=== PATIENT | female | born 1990 | race Caucasian/White ===

== ENCOUNTER → 2024-03-26 08:52 | Outpatient (REF) | payer OTHER, SELFPAY | LOC: RAD 08:52 | PROVIDERS: ATTENDING PHYSICIAN Chiropractor | DX: M99.01 Segmental and somatic dysfunction of cervical region (principal); M99.03 Segmental and somatic dysfunction of lumbar region | CPT/HCPCS: 72050; 72110 ==

== ENCOUNTER 2024-04-10 22:28 | Emergency (ER) | payer OTHER, SELFPAY ==
[2024-04-10 22:29] VITALS: BP 145/85
[2024-04-10 23:24] VITALS: BMI 27.8
--- NOTE | 2024-04-10 23:30 | ED.GENMED ---
History of Present Illness
<Gurmeet Casiano PA-C - Last Filed: 04/12/24 14:47>
General
Chief Complaint: Abdominal Pain
Source: patient
Time Seen by Provider: 04/10/24 23:09
History of Present Illness
History of Present Illness:
34-year-old otherwise healthy female presents with 3 to 4 days worth of initially intermittent right upper quadrant abdominal pain rating to the shoulder and back but now seems more constant. The pain is made worse with eating. Hurts to breathe at
times. No recent extended travel or surgery. No leg swelling or calf pain. There is no vomiting. She is moving her bowels. No urinary symptoms. No other complaints at this time. NO known injury
Phy Exam
<Gurmeet Casiano PA-C - Last Filed: 04/12/24 14:47>
Physical Exam
Physical Exam:
General: Uncomfortable appearing female no acute respiratory distress
HEENT: Normocephalic sclera anicteric
Heart: Regular rate and rhythm no murmurs
Lungs: Clear no wheeze
Abd: Soft, tender to RUQ, mildly positive otto's sign. NOrmal bowel sounds, no CVA tenderness
Ext: NO cyanosis
Course
<SHAYLEE Thomas Last Filed: 04/12/24 14:47>
Orders/Labs/Results
Orders:
Orders
04/10/24 22:32
Electrocardiogram (*1) Urgent
Reason for Study: Abdominal Pain
EKG- Treatment ONCE
04/10/24 23:25
0.9% Sodium Chloride 1000 ml [Nss] 1,000 ml IV BOLUS
Ketorolac [Toradol] 15 mg IV NOW STA
04/10/24 23:29
Test Result ONCE
04/10/24 23:30
Complete Blood Count/With Diff Urgent
Comprehensive Metabolic Panel Urgent
HCG, Serum Qualitative Screen Urgent
Lipase Urgent
04/10/24 23:37
Ondansetron Injectable [Zofran] 4 mg IV NOW STA
04/11/24 00:08
US Abdomen Complete/Upper Urgent
Comment:
Reason For Exam: ruq pain
04/11/24 01:44
HYDROmorphone [Dilaudid] 0.5 mg IV NOW STA
04/11/24 02:16
CT Abd/pelvis W Iv Cont Urgent
Comment:
Reason For Exam: right abdominal pain
Abnormal Lab Results
04/10/24
23:30
Hct 36.3 L %
(37.0-47.0)
Absolute Neuts (auto) 6.6 H 10^3/uL
(1.4-6.5)
Absolute Monos (auto) 0.8 H 10^3/uL
(0.1-0.6)
Glucose 102 H mg/dl
(70-99)
04/10/24 23:30
04/10/24 23:30
Vital Signs
Initial and Last Documented VS:
Initial Vital Signs
Temp Pulse Resp BP Pulse Ox
97.9 F 74 18 145/85 100
04/10/24 22:29 04/10/24 22:29 04/10/24 22:29 04/10/24 22:29 04/10/24 22:29
Last Documented Vital Signs
Temp Pulse Resp BP Pulse Ox
97.9 F 59 18 118/56 100
04/10/24 22:29 04/11/24 04:09 04/11/24 04:09 04/11/24 04:09 04/11/24 04:09
<Miranda Lema, DO - Last Filed: 04/11/24 03:54>
Orders/Labs/Results
Orders:
Orders
04/10/24 22:32
Electrocardiogram (*1) Urgent
Reason for Study: Abdominal Pain
EKG- Treatment ONCE
04/10/24 23:25
0.9% Sodium Chloride 1000 ml [Nss] 1,000 ml IV BOLUS
Ketorolac [Toradol] 15 mg IV NOW STA
04/10/24 23:29
Test Result ONCE
04/10/24 23:30
Complete Blood Count/With Diff Urgent
Comprehensive Metabolic Panel Urgent
HCG, Serum Qualitative Screen Urgent
Lipase Urgent
04/10/24 23:37
Ondansetron Injectable [Zofran] 4 mg IV NOW STA
04/11/24 00:08
US Abdomen Complete/Upper Urgent
Comment:
Reason For Exam: ruq pain
04/11/24 01:44
HYDROmorphone [Dilaudid] 0.5 mg IV NOW STA
04/11/24 02:16
CT Abd/pelvis W Iv Cont Urgent
Comment:
Reason For Exam: right abdominal pain
Abnormal Lab Results
04/10/24
23:30
Hct 36.3 L %
(37.0-47.0)
Absolute Neuts (auto) 6.6 H 10^3/uL
(1.4-6.5)
Absolute Monos (auto) 0.8 H 10^3/uL
(0.1-0.6)
Glucose 102 H mg/dl
(70-99)
04/10/24 23:30
04/10/24 23:30
Vital Signs
Initial and Last Documented VS:
Initial Vital Signs
Temp Pulse Resp BP Pulse Ox
97.9 F 74 18 145/85 100
04/10/24 22:29 04/10/24 22:29 04/10/24 22:29 04/10/24 22:29 04/10/24 22:29
Last Documented Vital Signs
Temp Pulse Resp BP Pulse Ox
97.9 F 59 18 118/56 100
04/10/24 22:29 04/11/24 04:09 04/11/24 04:09 04/11/24 04:09 04/11/24 04:09
<Gurmeet Casiano PA-C - Last Filed: 04/12/24 14:47>
MDM/Problems Addressed
Differential Diagnosis Includes:
RUQ abdominal pain. Consider biliary colic versus gastritis versus pancreatitis versus renal colic.
Will check labs. Administer fluids and Toradol. Ultrasound pending.
<Gurmeet Casiano PA-C - Last Filed: 04/12/24 14:47>
*Critical Care Note
Total Time (30-74mins, 75-104mins- exclusive of procedures): Not Applicable
<Gurmeet Casiano PA-C - Last Filed: 04/12/24 14:47>
Update Note
Update Note:
US negative for acute finding. With persistent pain CT abd ordered. If negative consider PPI and GI follow-up. Signed out to emergency room attending
ED Attending Note
<Gurmeet Casiano PA-C - Last Filed: 04/12/24 14:47>
-
Portions of this chart may have been created with voice recognition software.� Occasional wrong word or��sound alike� substitutions may have occurred due to the inherent limitations of voice recognition software.
<Miranda Lema DO - Last Filed: 04/11/24 03:54>
ED Attending Note
Patient seen and examined by attending physician: Yes
I performed a history and physical exam of patient and discussed management with resident, I reviewed resident's note and agree with documented findings and plan of care.: Yes
ED Attending Note:
34-year-old woman presents with 3-day history of right upper quadrant pain, intermittent nausea.
Exam remarkable for mild tenderness to palpation right upper quadrant without rebound or guarding.
Labs are unremarkable with normal white blood cell count, unremarkable chemistries, unremarkable LFTs.
Abdominal ultrasound is unremarkable.
CT abdomen pelvis essentially unremarkable save for note of a retrocecal appendix, the tip of which is mildly prominent measuring up to 7 mm but no appreciable periappendiceal inflammatory changes.
Patient's right upper quadrant pain is quite high most noted just infracostal no significant tenderness mid to lower abdomen.
With ongoing symptoms for 3 days, reassuring labs and exam without appreciable tenderness right mid abdomen, right lower quadrant, I suspect CAT scan findings are incidental and not consistent with acute appendicitis.
Recommend a short course of Protonix for potential gastritis/gastroduodenitis, discussed importance of bland diet and prompt follow-up with PCP. Patient will be referred to GI as well.
Strict return precautions discussed.
Discharge Plan
Departure
Patient Disposition: Home (Routine Discharge)
Date of Disposition: 04/11/24
Time of Disposition: 03:50
Patient with high blood pressure during this ER visit?: No
Condition: Good
Discharge Problem:
Abdominal pain
Instructions: Abdominal Pain
Prescriptions:
New
pantoprazole [Protonix] 40 mg tablet,delayed release (DR/EC)
40 mg PO DAILY Qty: 14 0RF
Referrals:
Ramone Carrasquillo MD [Active] -
Alem Cole MD [Family Provider] -
Activity Restrictions/Additional Instructions:
Drink plenty fluids. Eat a bland diet. Use Protonix daily. Turn if worse otherwise follow-up with GI
Interventions
Interventions:
*Risk Screen - Suicide Last Done: 04/10/24 22:29
*General Assessment Last Done: 04/10/24 22:29
*Neglect/Abuse Screening Last Done: 04/10/24 22:29
ED- Fall Risk Assessment Last Done: 04/10/24 23:59
*ED COVID-19 Vaccine History Last Done: 04/10/24 23:58
*Nursing Disposition Last Done: 04/11/24 04:09
II-Ovvgvt-Ivuqvylnqo Assessment Last Done: 04/10/24 23:59
Discharge Date and Time
Discharge Date/Time: 04/11/24 04:12
Print Language: POLISH
[2024-04-10] MEDS: TORADOL 15 MG IV (23:35)
[2024-04-10] MEDS: NSS 1000 IV (23:35)
[2024-04-10] MEDS: ZOFRAN 4 MG IV (23:41)
[2024-04-10 23:44] LABS: % Basophils 0.5 % (0-2); % Eosinophils 1.3 % (0-6); % Immature Granulocytes 0.2 % (0-0.5); % Monocytes 8.2 % (1.7-9.3); % Neutrophils 64.8 % (42.2-75.2); Absolute Basophils 0.1 10^3/uL (0-0.2); Absolute Eosinophils 0.1 10^3/uL (0-0.7); Absolute Lymphocytes 2.6 10^3/uL (1.2-3.4); Absolute Monocytes 0.8 10^3/uL (0.1-0.6); Absolute Neutrophils 6.6 10^3/uL (1.4-6.5); Hematocrit 36.3 % (37.0-47.0); Hemoglobin 12.7 g/dL (12.0-16.0); Mean Corpuscular Hgb 30.2 pg (27.0-31.0); Mean Corpuscular Volume 86.2 fL (81.0-99.0); Mean Platelet Volume 9.5 fL (7.4-10.4); Nucleated Red Blood Cells % 0 %; Platelet Count 310 10^3/uL (130-400); Red Blood Cell Count 4.21 10^6/uL (4.20-5.40); White Blood Cell Count 10.2 10^3/uL (4.8-10.8)
[2024-04-10 23:54] LABS: HCG, Serum Qualitative Screen Negative
[2024-04-10 23:58] LABS: ALT (SGPT) 21 U/L (0-35); AST (SGOT) 25 U/L (14-36); Albumin 4.4 g/dl (3.5-5.0); Alkaline Phosphatase 61 U/L (38-126); Blood Urea Nitrogen 16 mg/dl (7-17); Carbon Dioxide 27 mmol/L (22-30); Chloride 103 mmol/L (98-107); Estimated Creatinine Clearance 125 ml/min; Glucose 102 mg/dl (70-99); Lipase 212 U/L (23-300); Sodium 140 mmol/L (135-145); Total Bilirubin 0.5 mg/dl (0.2-1.3); eGFR > 60.00
[2024-04-11 01:48] VITALS: BP 106/59
[2024-04-11] MEDS: DILAUDID 0.5 MG IV (01:48)
[2024-04-11 04:09] VITALS: BP 118/56
== END 2024-04-11 04:12 | disposition home or self-care (01) ==
LOC: EMR 22:28
PROVIDERS: Physician Assistant; EMERGENCY PHYSICIAN Emergency Medicine; FAMILY PHYSICIAN Internal Medicine
DX: R10.11 Right upper quadrant pain (principal); M25.511 Pain in right shoulder; M54.9 Dorsalgia, unspecified
CPT/HCPCS: 99285; 96374; 96375 ×2; 96361; 74177; 76700; 80053; 83690; 84703; 85025; 93005; Q9967

== ENCOUNTER → 2025-07-19 11:59 | Outpatient (REF) | payer OTHER, SELFPAY | LOC: RAD 11:59 | PROVIDERS: ATTENDING PHYSICIAN Emergency Medicine | DX: M79.671 Pain in right foot (principal) | CPT/HCPCS: 73630 ==

== ENCOUNTER 2025-08-07 22:21 | Emergency (ER) | payer OTHER, SELFPAY ==
[2025-08-07 22:23] VITALS: BP 131/71
[2025-08-07 22:47] LABS: Hematocrit 37.5 % (37.0-47.0); Hemoglobin 12.6 g/dL (12.0-16.0); Mean Corp Hgb Conc. 33.6 g/dL (33.0-37.0); Mean Corpuscular Volume 88.0 fL (81.0-99.0); Nucleated Red Blood Cells % 0 %; Platelet Count 300 10^3/uL (130-400); Red Cell Dist. Width 12.8 % (11.5-14.5)
[2025-08-07 22:49] LABS: Urine Character Cloudy (Clear)
[2025-08-07 23:06] LABS: HCG, Serum Qualitative Screen Negative
[2025-08-07 23:12] LABS: ALT (SGPT) 22 U/L (0-35); AST (SGOT) 28 U/L (14-36); Albumin 4.8 g/dl (3.5-5.0); Alkaline Phosphatase 53 U/L (38-126); Blood Urea Nitrogen 16 mg/dl (7-17); Calcium 9.9 mg/dl (8.4-10.2); Carbon Dioxide 27 mmol/L (22-30); Chloride 102 mmol/L (98-107); Glucose 132 mg/dl (70-99); Lipase 221 U/L (23-300); Potassium 4.0 mmol/L (3.5-5.1); Sodium 136 mmol/L (135-145); Total Protein 8.0 g/dl (6.3-8.2); eGFR > 60.00
[2025-08-07 23:59] LABS: Urine Red Blood Cell 0-2 /HPF (0-2); Urine White Cell 0-2 /HPF (0-5)
--- NOTE | 2025-08-08 02:11 | ED.GENMED ---
Addendum entered and electronically signed by Cal Rome DO 08/08/25 05:45:
Update, ultrasound report reviewed reviewed with patient she is feeling better abdomen is soft minimally tender without guarding or rebound, white count noted, hCG noted will give another dose of pain meds try to get her comfortable will to go home,
clearly instructed to follow-up with her [employer] [employer] ER for worsening symptoms
Original Note:
History of Present Illness
General
Chief Complaint: Abdominal Symptoms
Source: patient and spouse
Exam Limitations: none
Time Seen by Provider: 08/08/25 01:51
Nursing documentation reviewed up to this point in time: agreed with
History of Present Illness
History of Present Illness:
35-year-old female acute onset of lower pelvic pain sharp with nausea no prior episodes she has had of her menstrual cycle, does not typically get pain like this, she does have endometriosis, she has had ectopic pregnancies try to get , she
had a D&E, so has her appendix and her gallbladder, did have some loose stool but she thinks it was due to stress, no sick contacts
Past History
Past History
ED Past Medical History: Other (Endometriosis)
ED Past Surgical History: Gynecological
Social History
Tobacco: Non-smoker
Alcohol: None
Drug: None
Personal:
Living: with family
Employment: Employed
Review of Systems
Review of Systems
All Other Systems: Not applicable
Constitutional: Denies fever or chills
EENT: Reports no symptoms
Respiratory: Reports no symptoms
Cardiac: Reports no symptoms
ABD/GI: Reports abdominal pain, nausea and diarrhea
: Denies dysuria, flank pain, incontinence or bleeding
Phy Exam
Physical Exam
Physical Exam:
Physical Exam
General: no apparent distress, not acutely ill
Neck: No jaundice
Heart: s1/s2 regular rate and rhythm, no murmur. equal radial pulses.
Lungs: no acute respiratory distress. clear bilaterally
Abdomen: Tender in the right lower abdomen
Neuro: alert and oriented. no focal neurological deficits
Skin: no rash
Psychiatric: well kept. interactive and cooperative
Extremities: no edema.
Course
Orders/Labs/Results
Orders:
Orders
08/07/25 22:27
Test Result ONCE
08/07/25 22:40
Complete Blood Count/With Diff Urgent
Comprehensive Metabolic Panel Urgent
HCG, Serum Qualitative Screen Urgent
Lipase Urgent
Urinalysis Urgent
Date Specimen was Collected: 08/07/25
Time Specimen was Collected: 22:
Urine Microscopic Urgent
Date Specimen was Collected: 08/07/25
Time Specimen was Collected: 22:26
08/08/25 02:06
0.9% Sodium Chloride 1000 ml [Nss] 1,000 ml IV BOLUS
Ketorolac [Toradol] 30 mg IV NOW STA
Ondansetron Injectable [Zofran] 4 mg IV NOW STA
08/08/25 02:07
CT Abd/pel Without Iv Or Oral Urgent
Comment:
Reason For Exam: r lower pain
US Pelvis Only (non-obstetric) Urgent
Comment:
Reason For Exam: rihfgt adnexal pain
Abnormal Lab Results
08/07/25
22:40
Glucose 132 H mg/dl
(70-99)
Urine Bacteria Few A
(Negative)
Urine Albumin 1+ A
(Neg - Trace)
08/07/25 22:40
08/07/25 22:40
Vital Signs
Initial and Last Documented VS:
Initial Vital Signs
Pulse Resp BP Pulse Ox
75 18 131/71 100
08/07/25 22:23 08/07/25 22:23 08/07/25 22:23 08/07/25 22:23
Last Documented Vital Signs
Temp Pulse Resp BP Pulse Ox
98.2 F 75 18 131/71 100
08/07/25 22:26 08/07/25 22:23 08/07/25 22:23 08/07/25 22:23 08/07/25 22:23
MDM/Problems Addressed
Differential Diagnosis Includes:
Ectopic torsion endometriosis appendicitis ureteral colic ureteral stone colitis nonspecific
MDM/Problems Addressed:
Abdominal pain
Chronic conditions affecting care:
Endometriosis
Acute Exacerbation and/or Progression of Chronic Illness:
Endometriosis
*Radiology
Radiology exam reviewed: radiology read reviewed
*Pulse Oximetry
SaO2: 100
Oxygen Mode of Delivery: Room air
Patient hypoxic: no
*Critical Care Note
Total Time (30-74mins, 75-104mins- exclusive of procedures): Not Applicable
ED Attending Note
-
Portions of this chart may have been created with voice recognition software.� Occasional wrong word or��sound alike� substitutions may have occurred due to the inherent limitations of voice recognition software.
Discharge Plan
Departure
Prescriptions:
No Action
pantoprazole [Protonix] 40 mg tablet,delayed release (DR/EC)
40 mg PO DAILY Qty: 14 0RF
Interventions
Interventions:
*Neglect/Abuse Screening Last Done: 08/07/25 22:25
*Risk Screen - Suicide (C-SSRS) Last Done: 08/07/25 22:25
Discharge Date and Time
Print Language: SAMOAN
[2025-08-08] MEDS: ZOFRAN 4 MG IV ×2 (02:31→05:35)
[2025-08-08] MEDS: NSS 1000 IV (02:32)
[2025-08-08] MEDS: TORADOL 30 MG IV (02:32)
[2025-08-08] MEDS: DILAUDID 0.5 MG IV (05:35)
--- NOTE | 2025-08-08 05:41 | ED.GENMED ---
History of Present Illness
General
Chief Complaint: Abdominal Symptoms
Time Seen by Provider: 08/08/25 01:51
Past History
Past History
ED Past Medical History: Other (Endometriosis)
ED Past Surgical History: Gynecological
Social History
Tobacco: Non-smoker
Alcohol: None
Drug: None
Personal:
Living: with family
Employment: Employed
Course
Orders/Labs/Results
Orders:
Orders
08/07/25 22:27
Test Result ONCE
08/07/25 22:40
Complete Blood Count/With Diff Urgent
Comprehensive Metabolic Panel Urgent
HCG, Serum Qualitative Screen Urgent
Lipase Urgent
Urinalysis Urgent
Date Specimen was Collected: 08/07/25
Time Specimen was Collected: 22:26
Urine Microscopic Urgent
Date Specimen was Collected: 08/07/25
Time Specimen was Collected: 22:26
08/08/25 02:06
0.9% Sodium Chloride 1000 ml [Nss] 1,000 ml IV BOLUS
Ketorolac [Toradol] 30 mg IV NOW STA
Ondansetron Injectable [Zofran] 4 mg IV NOW STA
08/08/25 02:07
CT Abd/pel Without Iv Or Oral Urgent
Comment:
Reason For Exam: r lower pain
US Pelvis W Transvag Combined Urgent
Reason For Exam: rihfgt adnexal pain
08/08/25 05:23
HYDROmorphone [Dilaudid] 0.5 mg IV NOW STA
08/08/25 05:24
Ondansetron Injectable [Zofran] 4 mg IV NOW STA
Abnormal Lab Results
08/07/25
22:40
Glucose 132 H mg/dl
(70-99)
Urine Bacteria Few A
(Negative)
Urine Albumin 1+ A
(Neg - Trace)
08/07/25 22:40
08/07/25 22:40
Vital Signs
Initial and Last Documented VS:
Initial Vital Signs
Pulse Resp BP Pulse Ox
75 18 131/71 100
08/07/25 22:23 08/07/25 22:23 08/07/25 22:23 08/07/25 22:23
Last Documented Vital Signs
Temp Pulse Resp BP Pulse Ox
98.2 F 75 18 131/71 100
08/07/25 22:26 08/07/25 22:23 08/07/25 22:23 08/07/25 22:23 08/08/25 02:13
*Pulse Oximetry
SaO2: 100
Oxygen Mode of Delivery: Room air
Update Note
Update Note:
5:30 AM update patient feeling better ultrasound reviewed with patient she has arterial and venous flow to her ovary much improved with Toradol-abdomen is soft without guarding or rebound still not pain-free will try dose of Dilaudid try to get her
pain-free, she has a supervisor plastics to follow-up with however return to the ER for worsening symptoms
ED Attending Note
-
Portions of this chart may have been created with voice recognition software.� Occasional wrong word or��sound alike� substitutions may have occurred due to the inherent limitations of voice recognition software.
Discharge Plan
Departure
Patient Disposition: Home (Routine Discharge)
Date of Disposition: 08/08/25
Time of Disposition: 05:42
Patient with high blood pressure during this ER visit?: No
Condition: Good
Discharge Problem:
Ovarian cyst
Prescriptions:
New
oxycodone-acetaminophen [Percocet] 5-325 mg tablet
1 tab PO Q6HPRN PRN (Reason: pain) Qty: 10 0RF
ibuprofen 600 mg tablet
600 mg PO Q6H PRN (Reason: Pain) Qty: 20 0RF
ondansetron 4 mg tablet,disintegrating
4 mg PO Q8H PRN (Reason: nausea and vomiting) Qty: 10 0RF
No Action
pantoprazole [Protonix] 40 mg tablet,delayed release (DR/EC)
40 mg PO DAILY Qty: 14 0RF
Referrals:
Kathy Elaine MD [Family Provider, Internal Medicine] - Next open appointment
Lydia Archuleta MD [Active, Gynecology] - Next open appointment
Activity Restrictions/Additional Instructions:
Follow-up with your [employer] return to the ER for worsening symptoms
Interventions
Interventions:
*Neglect/Abuse Screening Last Done: 08/07/25 22:25
*Risk Screen - Suicide (C-SSRS) Last Done: 08/07/25 22:25
Discharge Date and Time
Print Language: FILIPINO
== END 2025-08-08 06:29 | disposition home or self-care (01) ==
LOC: EMR 22:21
PROVIDERS: Emergency Medicine; EMERGENCY PHYSICIAN Emergency Medicine; FAMILY PHYSICIAN Hospitalist
DX: R11.0 Nausea (principal); R10.21 Pelvic and perineal pain right side; R19.7 Diarrhea, unspecified; N80.9 Endometriosis, unspecified
CPT/HCPCS: 99284; 96374; 96375 ×2; 96361; 96376; 74176; 76830; 76856; 80053; 81003; 81015; 83690; 84703; 85025